=== PATIENT | female | born 1955 | race Caucasian/White ===

== ENCOUNTER → 2018-12-21 | Outpatient (CLI) | payer BC ==
[~2018-12-21] MED LIST: ASPIR 8181 MG PO; CALTRATE-600 W1 EACH PO; EVISTA60 MG PO; MULTIVITAMINS1 EAC7 PO; PRAVASTATIN SOD10 MG PO; RAMIPRIL5 MG PO; VERAPAMIL ER120 MG PO
[2018-12-21 10:50] LABS: BASOPHILS % 0.4 % (0.0-1.0); EOSINOPHILS # (AUTO) 0.2 (0.0-0.4); HEMATOCRIT 45.7 % (34.2-44.1); HEMOGLOBIN 15.8 g/dL (12.0-16.0); LYMPHOCYTES # (AUTO) 2.2 (1.0-3.2); LYMPHOCYTES % 22.4 % (18.0-39.1); MEAN CORPUSCULAR HEMOGLOBIN 34.1 pg (28-32); MEAN CORPUSCULAR HGB CONC 34.6 g/dL (31-35); MEAN CORPUSCULAR VOLUME 98.7 fL (81-99); MONOCYTES # (AUTO) 0.9 (0.2-0.8); MONOCYTES % 9.2 % (4.4-11.3); NEUTROPHILS # (AUTO) 6.5 (2.1-6.9); NEUTROPHILS % 65.6 % (38.7-80.0); PLATELET COUNT 358 x10e3/uL (140-360); RED BLOOD COUNT 4.63 x10e6/uL (3.6-5.1); RED CELL DISTRIBUTION WIDTH 13.8 % (11.7-14.4)
== END ==
LOC: LAB 10:31
PROVIDERS: ATTEND General Practice
DX: Z01.818 Encounter for other preprocedural examination (principal); Z00.00 Encounter for general adult medical examination without abnormal findings
CPT/HCPCS: 36415; 85025

== ENCOUNTER → 2018-12-29 | Day surgery (SDC) | payer BC ==
[~2018-12-29] MED LIST changes: +ACETAMINOPHEN/CODEINE 300MG - 30MG TAB ONE; +FENTANYL CITRATE/PF 100MCG/2 ML INJ ONE; +MIDAZOLAM HCL 2 MG/2 ML VIAL ONE; +OR PHACO EYE KIT ONE; +PREOP PHACO EYE KIT ONE
--- OUTSIDE RECORDS SUMMARY | 2018-12-29 11:30 | XMS REPORT ---
Author Author [facility] Address Unknown Phone Unavailable Care Team Providers Care Machine Technician Name Role Phone Johnathan Martinez Unavailable Unavailable Problems This patient has no known problems. Allergies, Adverse Reactions, Alerts This patient has no known allergies or adverse reactions. Medications This patient has no known medications. Results Test Description Test Time Test Comments Text Results Atomic Results Result Comments BREAST ULTRASOUND RIGHT 2018-08-05 11:09:47 - BREAST ULTRASOUND RIGHTULTRASOUND OF RIGHT BREAST AND RIGHT AXILLA: 08/05/2018CLINICAL: Abnormal mammogram. Comparison is made to exam dated 07/27/2018 mammogram - [facility]- . Real-time ultrasound of the right breast and axilla was performed. No abnormalities were seen sonographically in the right axilla. There is a 0.6 x 0.4 x 0.5 cm simple cyst in the subareolar right breast which correlates with the finding noted on the screening mammogram of 07/27/2018. No additional mass or focus of parenchymal distortion was imaged.IMPRESSION: BENIGN Benign finding. There is no sonographic evidence of malignancy. Resume annual mammogram screening schedule is recommended. Víctor Vera M.D. rb/:08/05/2018 11:09:47 Entry: - 08/08/2018 08:45:29Imaging Technologist: Zakiya Haque , [facility]FWletter sent: BIRADS 1-2 Normal Ultrasound BI-RADS: 2 Benign SCR MAMM BILATERAL BACILIO CAD DIGITAL 2018-07-29 11:00:14 - SCR MAMM BILATERAL BACILIO CAD DIGITALBILATERAL DIGITAL SCREENING MAMMOGRAM 3D/2D WITH CAD: 07/27/2018CLINICAL: Asymptomatic. Digital breast tomosynthesis was performed in addition to routine CC and MLO views. Current mammographic images were evaluated by either a [employer] M-Vu or a [employer] CAD (computer aided detection system). Comparison is made to exams dated 05/19/2017 mammogram, 03/16 mammogram, and 03/20/2015 mammogram - [facility]. There are scattered fibroglandular tissues in both breasts. Right subareolar a 6 mm circumscribed oval mass was seen, possibly a dilated duct. No suspicious mass, architectural distortion, malignant type calcification, or lymph node abnormality detected in the left breast. IMPRESSION: INCOMPLETE ASSESSMENT: ADDITIONAL IMAGING EVALUATION RECOMMENDEDAn oval circumscribed low-density 6 mm mass in the right subareolar region, possibly a benign dilated duct. Targeted ultrasound is recommended at this time.Moisés De La Paz M.D. ss/:07/29/2018 11:00:14 Core Drilling Supervisor: Chelsie LOPEZ, [facility]-FWletter sent: Additional Imaging Mammogram BI-RADS: 0 Indeterminate Chest Pa And Lat (2 Views) 2018 12:59:00 [place] [id number] RADIOLOGY SERVICES REPORT Name: ELVI SALCEDO Acct Number: [id number] :[id number] Age:63 Sex:F Ord Phys: ASTRID MARTINEZ CDE Unit Number: [id number] [address]: Status: REG REF RAD Exam Date: 07/11/18 EXAM DESCRIPTION: RAD - Chest Pa And Lat (2 Views) - 2018 12:38 pm CLINICAL HISTORY: Cough, wheezing COMPARISON: None. TECHNIQUE: PA and lateral views of the chest were obtained. FINDINGS: The lungs are normal volume. No one focal area of consolidation seen. Patient has prominent interstitial opacification in the mid and lower lung spencer. Interstitial markings in the upper lung spencer are prominent to a lesser degree. Patchy airspace opacification is present. Heart size is normal and central vasculature is within normal limits. No pleural effusion or pneumothorax seen. No acute bony finding noted. No aortic abnormality. IMPRESSION: Baseline study showed Ing very extensive opacification pattern in the lower lung spencer. Bilateral pneumonia superimposed on chronic interstitial lung disease is favored. Signed By: Joe Westbrook MD Signed AT: 07/11/18 1300
[2018-12-29 14:15] VITALS: BP 136/62
== END | disposition home or self-care (01) ==
LOC: OR 10:14
PROVIDERS: ATTEND Ophthalmology
DX: H25.12 Age-related nuclear cataract, left eye (principal); C53.9 Malignant neoplasm of cervix uteri, unspecified; E78.5 Hyperlipidemia, unspecified; I10 Essential (primary) hypertension; F17.210 Nicotine dependence, cigarettes, uncomplicated; Z79.82 Long term (current) use of aspirin
CPT/HCPCS: 66984; J2250; J3010; V2632